=== PATIENT | male | born 1945 | race Caucasian/White ===

== ENCOUNTER → 2019-06-24 | Outpatient (CLI) | payer MEDICARE, BC ==
--- NOTE | 2019-06-25 09:14 | XCELERA REPORT ---
[address] [address] Transthoracic Echocardiogram Report Name: NANCIE LU Age: 74 yrs Gender: Male : 1945 Patient Status: Outpatient Patient Location: Study Date: 06/24/2019 09:55 AM Height: 69 in Weight: 185 lb BSA: 2.0 m2 Procedure: A complete two-dimensional transthoracic echocardiogram was performed (2D, M-mode, spectral and color flow Doppler). The study was technically adequate with some images being suboptimal in quality. Reason For Study: HTN Ordering Physician: ROHIT WILHELM Performed By: Melissa Robbins Interpretation Summary The left ventricular ejection fraction is normal. There is mild concentric left ventricular hypertrophy. The left ventricle is grossly normal size. Doppler measurements suggest pseudonormalized left ventricular relaxation, which is associated with grade II/IV or mild to moderate diastolic dysfunction Wall motion cannot be accurately commented on, but no definite regional wall motion abnormalities noted. Borderline right ventricular enlargement. The right ventricular systolic function is normal. The left atrium is mildly dilated. The right atrium is normal in size There is a trace to mild amount of mitral regurgitation There is no mitral valve stenosis. There is a mild to moderate amount of aortic regurgitation There is no aortic valve stenosis There is a mild amount of tricuspid regurgitation There is mild pulmonary hypertension by echo Best estimated RVSP is approximately 35-40 mm/Hg. There is a mild amount of pulmonic regurgitation There is no pericardial effusion. MMode/2D Measurements & Calculations RVDd: 4.1 cm LVIDd: 3.9 cm FS: 33.0 % Ao root diam: 3.3 cm IVSd: 1.1 cm LVIDs: 2.6 cm EDV(Teich): 66.0 ml Ao root area: 8.6 cm2 LVPWd: 1.0 cm ESV(Teich): 24.9 ml LA dimension: 3.7 cm EF(Teich): 62.2 % Doppler Measurements & Calculations MV E max dank: MV P1/2t max dank: Ao V2 max: AI max dank: 102.2 cm/sec 103.2 cm/sec 142.4 cm/sec 374.2 cm/sec MV A max dank: MV P1/2t: 50.5 msec Ao max PG: AI max P.6 cm/sec MVA(P1/2t): 4.4 cm2 8.1 mmHg 56.0 mmHg MV E/A: 1.5 MV dec slope: AI dec slope: 106.9 cm/sec2 597.9 cm/sec2 AI P1/2t: 1025 msec MV dec time: 0.18 sec LV V1 max PG: PA V2 max: PI end-d dank: TR max dank: 6.2 mmHg 105.9 cm/sec 127.6 cm/sec 309.1 cm/sec LV V1 max: PA max P.5 mmHg TR max P.9 cm/sec 38.2 mmHg AV P1/2t-pr_phl: MV P1/2t-pr_phl: 1025 msec 51.8 msec Left Ventricle The left ventricle is grossly normal size. There is mild concentric left ventricular hypertrophy. The left ventricular ejection fraction is normal. Doppler measurements suggest pseudonormalized left ventricular relaxation, which is associated with grade II/IV or mild to moderate diastolic dysfunction. Wall motion cannot be accurately commented on, but no definite regional wall motion abnormalities noted. Right Ventricle Borderline right ventricular enlargement. There is normal right ventricular wall thickness. The right ventricular systolic function is normal. Atria The right atrium is normal in size. The left atrium is mildly dilated. Interarterial septum not well visualized and not well dopplered. Cannot comment on ASD/PFO presence. Mitral Valve The mitral valve leaflets are sclerotic, but show no functional abnormalities. There is no mitral valve stenosis. There is a trace to mild amount of mitral regurgitation. Aortic Valve The aortic valve is sclerotic, but shows no functional abnormality. There is no aortic valve stenosis. There is a mild to moderate amount of aortic regurgitation. Tricuspid Valve The tricuspid valve is not well visualized, but is grossly normal. There is no tricuspid stenosis. There is a mild amount of tricuspid regurgitation. There is mild pulmonary hypertension by echo. Best estimated RVSP is approximately 35-40 mm/Hg. Pulmonic Valve The pulmonic valve is not well visualized. There is no pulmonic valvular stenosis. There is a mild amount of pulmonic regurgitation. Great Vessels The aortic root is not well visualized but is probably normal size. Effusions There is no pericardial effusion. : ROHIT WILHELM Shyamal
== END ==
LOC: SP 09:25
PROVIDERS: ATTEND Internal Medicine Rheumatology
DX: M43.9 Deforming dorsopathy, unspecified (principal); I27.20 Pulmonary hypertension, unspecified; Z77.090 Contact with and (suspected) exposure to asbestos
CPT/HCPCS: 93306